=== PATIENT | male | born 1950 | race African-American/Black ===

== ENCOUNTER 2020-12-27 00:02 | Emergency (ER) | payer MEDICARE ==
[~2020-12-27] VITALS: Ht 185.4 cm; Wt 91.0 kg
[2020-12-27] MEDS ORDERED: ONDANSETRON HCL 4MG/2ML INJ IV STA (02:47)
[2020-12-27 04:35] LABS: BASOPHILS % 0.2 % (0.0-2.0); EOSINOPHILS % 0.3 % (0.0-5.0); HEMATOCRIT. 52.2 % (42.0-52.0); HEMOGLOBIN. 17.9 g/dL (14.0-18.0); LYMPHOCYTES % 12.5 % (20.0-50.0); MEAN CORPUSCULAR HEMOGLOBIN 34.9 pg (28.0-32.0); MEAN CORPUSCULAR VOLUME 101.5 fL (80.0-94.0); MEAN PLATELET VOLUME 8.5 fl (7.4-10.4); MONOCYTES % 9.5 % (2.0-8.0); NEUTROPHILS % 77.5 % (40.0-76.0); PLATELET 222 x1000/uL (130-400); RED BLOOD CELL COUNT 5.14 mill/uL (4.7-6.1)
[2020-12-27 04:38] LABS: CHLORIDE 105 mEq/L (98-107)
[2020-12-27 04:48] LABS: ETHANOL BLOOD 224 mg/dL
[2020-12-27 05:09] VITALS: BP 127/81
== END 2020-12-27 05:36 | disposition home or self-care (01) ==
LOC: ER 00:02
DX: T51.0X1A Toxic effect of ethanol, accidental (unintentional), initial encounter (principal); Y92.89 Other specified places as the place of occurrence of the external cause
CPT/HCPCS: 36415; 80048; 80320; 85025; 99283; G0480